=== PATIENT | male | born 1955 | race Caucasian/White ===

== ENCOUNTER 2016-09-10 10:09 | Emergency (ER) | payer OTHER ==
--- NOTE | 2016-09-10 10:21 | ER Document Report ---
ED Medical Screen (RME) - General Stated Complaint: LEG PAIN Notes: patient is a 61 year old male p/w that he has left leg pain after falling off a ladder from about 2 feet up. has pain just above the left knee. swelling and tenderess above the left knee. concern for tendon rupture PMH: HTN (noncompliant with medication) I have greeted and performed a rapid initial assessment of this patient. A comprehensive ED assessment and evaluation of the patient, analysis of test results and completion of the medical decision making process will be conducted by additional ED providers. TRAVEL OUTSIDE OF THE [place] IN LAST 30 DAYS: No - Related Data Allergies/Adverse Reactions: No Known Allergies Allergy (Verified 09/10/16 10:17) Past Medical History - Past Medical History Cardiac Medical History: Reports: Hx Hypertension Denies: Hx Coronary Artery Disease, Hx Heart Attack Pulmonary Medical History: Denies: Hx Asthma, Hx Bronchitis, Hx COPD, Hx Pneumonia Neurological Medical History: Denies: Hx Cerebrovascular Accident, Hx Seizures Musculoskeltal Medical History: Denies Hx Arthritis, Reports Hx Musculoskeletal Trauma Past Surgical History: Reports: Hx Abdominal Surgery - shrapnel removal - Immunizations Immunizations up to date: Yes Hx Diphtheria, Pertussis, Tetanus Vaccination: Yes
--- NOTE | 2016-09-10 10:49 | ER Document Report ---
ED Extremity Problem, Lower - General Mode of Arrival: Ambulatory Information source: Patient TRAVEL OUTSIDE OF THE [place] IN LAST 30 DAYS: No - HPI Patient complains to provider of: Injury Location: Knee - left Occurred: Just prior to arrival Where: Outdoors, Work Context: Other - see above Associated symptoms: Other - see above <MARCUS DUMONT - Last Filed: 09/10/16 11:11> <NASH JIMENEZ - Last Filed: 09/10/16 13:24> - General Chief Complaint: Leg Pain Stated Complaint: LEG PAIN Notes: 61 year old male with history of hypertension presents to the ED complaining of difficulty extending his left knee secondary to falling backwards off a ladder just prior to arrival. Patient reports that he was on the second rung of an 8 foot fiberglass ladder when the ladder buckled. Patient proceeded to fall backwards while the rung above fell onto his left leg right above the knee. Patient does not complain of any pain, and is actively trying to extend his left leg upon examination. (MARCUS DUMONT) - Related Data Allergies/Adverse Reactions: No Known Allergies Allergy (Verified 09/10/16 10:17) Past Medical History - General Information source: Patient - Social History Smoking Status: Never Smoker Chew tobacco use (# tins/day): No Frequency of alcohol use: None Drug Abuse: None Family History: Reviewed & Not Pertinent Patient has suicidal ideation: No Patient has homicidal ideation: No - Past Medical History Cardiac Medical History: Reports: Hx Hypertension Renal/ Medical History: Denies: Hx Peritoneal Dialysis Musculoskeltal Medical History: Reports Hx Musculoskeletal Trauma Past Surgical History: Reports: Hx Abdominal Surgery - shrapnel removal - Immunizations Immunizations up to date: Yes Hx Diphtheria, Pertussis, Tetanus Vaccination: Yes <MARCUS DUMONT - Last Filed: 09/10/16 11:11> Review of Systems - Review of Systems Constitutional: No symptoms reported EENT: No symptoms reported Cardiovascular: No symptoms reported Respiratory: No symptoms reported Gastrointestinal: No symptoms reported Genitourinary: No symptoms reported Male Genitourinary: No symptoms reported Musculoskeletal: See HPI, Other - inability to extend left knee Skin: No symptoms reported Hematologic/Lymphatic: No symptoms reported Neurological/Psychological: No symptoms reported -: Yes All other systems reviewed and negative <MARCUS UDMONT - Last Filed: 09/10/16 11:11> Physical Exam - General General appearance: Alert In distress: None - HEENT Head: Normocephalic, Atraumatic Eyes: Normal Extraocular movements intact: Yes Pupils: PERRL - Respiratory Respiratory status: No respiratory distress - Cardiovascular Rhythm: Regular - Abdominal Inspection: Normal - Back Back: Normal - Extremities General upper extremity: Normal inspection, Normal ROM General lower extremity: No: Normal inspection - see knee exam below Knee: Nontender, Other - Palpable defect where the left quadraceps tendons should be. Unable to extend left knee. Palpable left femoral condyles. - Neurological Neuro grossly intact: Yes - Psychological Associated symptoms: Normal affect, Normal mood - Skin Skin Temperature: Warm Skin Moisture: Dry Skin Color: Normal <MARCUS DUMONT - Last Filed: 09/10/16 11:11> <NASH JIMENEZ - Last Filed: 09/10/16 13:24> - Vital signs Vitals: Temp Pulse Resp BP Pulse Ox 97.3 F 86 20 150/101 H 97 09/10/16 10:15 09/10/16 10:15 09/10/16 10:15 09/10/16 10:15 09/10/16 10:15 Course <DUMONTMARCUS - Last Filed: 09/10/16 11:11> - Laboratory Result Diagrams: 09/10/16 12:21 09/10/16 12:21 - Diagnostic Test Radiology reviewed: Image reviewed, Reports reviewed - Possible avulsion from the patella, soft tissue defect in the suprapatellar region consistent with the physical exam showing a ruptured quadriceps tendon - EKG Interpretation by Me EKG shows normal: Sinus rhythm, Meridian, Intervals, QRS Complexes, ST-T Waves Rate: Normal - 90 Rhythm: NSR Meridian/QRS: Left axis deviation When compared to previous EKG there are: Previous EKG unavailable - Consults Dr. Hernandez Consulted provider: will come to ER <NASH JIMENEZ - Last Filed: 09/10/16 13:24> - Re-evaluation Re-evalutation: 09/10/16 13:18 The knee immobilizer was placed on the left lower extremity by the PCT. Plan transport, the patient is able to ambulate with a 4 footed cane and the knee immobilizer. He states that he does not have any pain so he does not need pain medication. (NASH JIMENEZ) - Vital Signs Vital signs: Temp Pulse Resp BP Pulse Ox 97.3 F 86 20 150/101 H 97 09/10/16 10:15 09/10/16 10:15 09/10/16 10:15 09/10/16 10:15 09/10/16 10:15 - Laboratory Laboratory results interpreted by me: 09/10/16 12:21 Glucose 135 H Discharge <MARCUS DUMONT - Last Filed: 09/10/16 11:11> <NASH JIMENEZ - Last Filed: 09/10/16 13:24> - Discharge Clinical Impression: Quadriceps tendon rupture Qualifiers: Encounter type: initial encounter Laterality: left Qualified Code(s): S76.112A - Strain of left quadriceps muscle, fascia and tendon, initial encounter Condition: Stable Disposition: HOME, SELF-CARE Additional Instructions: Wear the knee immobilizer. Elevate your leg. Limit walking. Do not eat after midnight. Follow-up with at the [facility] for [facility] tomorrow morning at 8:00 AM. Prescriptions: Oxycodone HCl/Acetaminophen [Percocet 5-325 mg Tablet] 1 - 2 tab PO ASDIR PRN # 15 tablet PRN Reason: Referrals: [facility] [Provider Group] - Follow up tomorrow Scribe Attestation: 09/10/16 13:24 I personally performed the services described in the documentation, reviewed and edited the documentation which was dictated to the scribe in my presence, and it accurately records my words and actions. (NASH JIMENEZ) Scribe Documentation - Scribe Written by Monroeibe:: Jens Melgar, 09/10/2016 1126 acting as scribe for :: Bang <MARCUS DUMONT - Last Filed: 09/10/16 11:11>
[2016-09-10 12:41] LABS: APPEARANCE,URINE CLEAR; BILIRUBIN,URINE NEGATIVE (NEGATIVE); GLUCOSE, URINE NEGATIVE (NEGATIVE); KETONES,URINE NEGATIVE (NEGATIVE); LEUKOCYTE ESTERASE,URINE NEGATIVE (NEGATIVE); NITRITE,URINE NEGATIVE (NEGATIVE); PROTEIN,URINE NEGATIVE (NEGATIVE); URINE SPECIFIC GRAVITY 1.012; UROBILINOGEN,URINE NEGATIVE mg/dL (<2.0)
[2016-09-10 12:51] LABS: ABSOLUTE BASOPHILS # (AUTO) 0.1 10^3/uL (0.0-0.2); ABSOLUTE EOSINOPHILS # (AUTO) 0.2 10^3/uL (0.0-0.6); ABSOLUTE LYMPHOCYTES (AUTO) 1.5 10^3/uL (0.5-4.7); ABSOLUTE MONOCYTES (AUTO) 0.6 10^3/uL (0.1-1.4); ABSOLUTE NEUT (AUTO) 5.8 10^3/uL (1.7-8.2); BASOPHILS % (AUTO) 0.9 % (0-2); EOSINOPHILS % (AUTO) 2.3 % (0-6); HEMATOCRIT 44.6 % (37.9-51.0); HEMOGLOBIN 15.3 g/dL (13.5-17.0); HGB HCT DIFFERENCE 1.3; LYMPHOCYTES % (AUTO) 18.1 % (13-45); MEAN CORPUSCULAR HEMOGLOBIN 31.2 pg (27.0-33.4); MEAN CORPUSCULAR HGB CONC 34.4 g/dL (32.0-36.0); MEAN CORPUSCULAR VOLUME 91 fl (80-97); MONOCYTES % (AUTO) 7.6 % (3-13); RED BLOOD COUNT 4.91 10^6/uL (4.35-5.55); RED CELL DISTRIBUTION WIDTH 13.3 % (11.5-14.0); SEGMENTED NEUTROPHILS % (AUTO) 71.1 % (42-78); WHITE BLOOD COUNT 8.2 10^3/uL (4.0-10.5)
[2016-09-10 13:12] LABS: ALANINE AMINOTRANSFERASE 60 U/L (21-72); ALBUMIN 4.5 g/dL (3.5-5.0); ALKALINE PHOSPHATASE 80 U/L (38-126); ANION GAP 12 (5-19); ASPARTATE AMINO TRANSFERASE 47 U/L (17-59); BILIRUBIN,TOTAL 0.9 mg/dL (0.2-1.3); BLOOD UREA NITROGEN 10 mg/dL (7-20); CALCIUM 9.7 mg/dL (8.4-10.2); CARBON DIOXIDE 25 mmol/L (22-30); CHLORIDE 103 mmol/L (98-107); CREATININE RESULT 0.82 mg/dL (0.52-1.25); GLUCOSE 135 mg/dL (75-110); POTASSIUM 4.4 mmol/L (3.6-5.0); SODIUM 139.6 mmol/L (137-145); TOTAL PROTEIN 7.5 g/dL (6.3-8.2)
[2016-09-10 13:33] VITALS: BP 158/91
--- NOTE | 2016-09-10 20:05 | EKG REPORT ---
SEVERITY:- OTHERWISE NORMAL ECG - SINUS RHYTHM BORDERLINE LEFT AXIS DEVIATION : Confirmed by: Terri Foley 10-Sep-2016 20:04:40
== END 2016-09-10 13:31 | disposition home or self-care (01) ==
LOC: ER 10:09
DX: S76.112A Strain of left quadriceps muscle, fascia and tendon, initial encounter (principal); M25.561 Pain in right knee; W11.XXXA Fall on and from ladder, initial encounter
CPT/HCPCS: 93005; 99284; 36415; 85025; 80053; 81001; 71020; 73562; 93010; L1830

== ENCOUNTER 2016-09-11 11:25 | Day surgery (SDC) | payer OTHER ==
[~2016-09-11 11:25] MED LIST: CEFAZOLIN 2 GM/D5W RTU 2 GM/50 ML RTUPB IV ONE; GLYCOPYRROLATE INJ 0.4 MG/2 ML VIAL ONE; LIDOCAINE 2% INJ-PF (20 MG/ML) 10 ML AMPUL ONE; METOCLOPRAMIDE HCL INJ/PF 10 MG/2 ML SDV ONE; NEOSTIGMINE METHYLSULFATE 10 MG/10 ML VIAL ONE; ONDANSETRON HCL INJ/PF 4 MG/2 ML SDV ONE; SUCCINYLCHOLINE CHLORIDE INJ 200 MG/10 ML VIAL ONE
[2016-09-11] MEDS ORDERED: FENTANYL CITRATE INJ/PF 250 MCG/5 ML AMPULE ONE (12:13)
[2016-09-11] MEDS ORDERED: PROPOFOL INJ 200 MG/20 ML VIAL IV ONE (12:14)
[2016-09-11] MEDS ORDERED: MIDAZOLAM 2 MG/2 ML INJ ONE (12:14)
[2016-09-11] MEDS ORDERED: MORPHINE SULFATE 10 MG/ML INJ ONE (12:14)
[2016-09-11] MEDS ORDERED: ACETAMINOPHEN 100 ML IV ONE (12:14)
[2016-09-11] MEDS ORDERED: PROMETHAZINE HCL INJ 25 MG/1 ML VIAL IV PRN ×2 (13:55)
[2016-09-11] MEDS ORDERED: DIPHENHYDRAMINE HCL 50 MG/ML VIAL IV PRN (13:55)
[2016-09-11] MEDS ORDERED: MEPERIDINE HCL/PF INJ 25 MG/1 ML DISP.SYRIN IV PRN (13:55)
[2016-09-11] MEDS ORDERED: OXYCODONE-ACETAMINOPHEN 5-325 MG TABLET PO PRN ×4 (13:55→14:49)
[2016-09-11] MEDS ORDERED: FENTANYL CITRATE INJ/PF 100 MCG/2 ML AMPUL IV PRN ×3 (13:55)
[2016-09-11] MEDS ORDERED: MORPHINE SULFATE 10 MG/ML INJ IV PRN (13:55)
--- NOTE | 2016-09-11 14:46 | Operative Report ---
Operative Report DATE OF SURGERY: 09/11/16 PREOPERATIVE DIAGNOSIS: Left quadriceps tendon rupture POSTOPERATIVE DIAGNOSIS: Same OPERATION: Left quadriceps tendon repair SURGEON: ANAMARIA GARZA ANESTHESIA: GA TISSUE REMOVED OR ALTERED: none COMPLICATIONS: None ESTIMATED BLOOD LOSS: 20 mL INTRAOPERATIVE FINDINGS: As above PROCEDURE: After receiving 2 g of Ancef in the preop holding area patient left knee was marked. Patient was brought to the operating room where the patient was successfully sedated and intubated. A thigh tourniquet was applied to the left thigh and a bump was placed under his buttocks. The left lower extremity was prepped and draped in a normal sterile surgical fashion. Timeout was done identifying the left knee as the correct site. Esmarch was used to exsanguinate the extremity and the tourniquet was inflated to 300 mmHg. A longitudinal incision over the knee was done using a 10 blade. Deep knife was using to quickly exposed the torn quadriceps tendon. Dissection was taken down distally exposing the patellar tendon. Suction was used to remove all of the fluid and hematoma. The edges of the quadriceps tendon and superior pole of patella were debrided and cleaned with Quincy, and knife. I used 2 #2 fiber tape to do my Krakw stitch in the quadriceps tendon. After the 4 strands of the fiber tape were coming out of the quadriceps I clamped these and then proceeded to do my 3 drill holes in the patella. I use a 2.0 drill bit and made separate stab incisions parallel with the patellar tendon fibers to expose him distally. I used a De La Rosa suture passer and passed it from the superior pole and came out of the stab incisions distally to capture Vicryl which I pulled through them. The Vicryl was used as a suture passer and I was used the fiber wires and freedom through them through the superior pole and have him come out the inferior pole. After 4 strands were passed, one most lateral one most medial and the 2 inner tails were passed through the middle drill hole. The knee was placed in full extension and I was able to pull on the fiber strands to make sure that the quadriceps tendon would abut the superior pole of the patella. I was able then to go and tying knots securing the quadriceps tendon to the superior pole. After securing the tendon I proceeded then to use 0 Vicryl to repair the medial and lateral retinaculum. I used 0 Vicryl to repair the stab incisions in the patellar tendon. I placed the knee from 0 to 90 making sure that my repair held and it did. At this point I proceeded to close the wound with 0 Vicryl to Vicryl and kody for skin. Xeroform 4 x 4 dressing and Sof-Rol was applied to the wound and lower extremity. I overwrapped it with an Declan bandage. Tourniquet was let down and then the drapes were removed. Patient was placed in a hinged knee brace locked at 0. Patient was successfully extubated and sent to PACU in stable condition.
--- NOTE | 2016-09-11 14:49 | PDOC DISCHARGE SUMMARY ---
Discharge Summary (SDC) - Discharge Final Diagnosis: Left quadriceps tendon repair Date of Surgery: 09/11/16 Discharge Date: 09/11/16 Condition: Good Treatment or Instructions: Patient and bili with crutches with the brace locked at 0. Ambulate as tolerated without range of motion. Okay to weight-bear as tolerated. Dressing change in 5 days. After that he can shower as tolerated. No soaking or bathing. Follow up in 10-14 days. Prescriptions: Oxycodone HCl/Acetaminophen [Percocet 5-325 mg Tablet] 1 - 2 tab PO ASDIR PRN # 40 tablet PRN Reason: Discharge Activity: Keep Legs Elevated, No Lifting/Push/Pulling Adaptive Devices on Discharge: Axillary Crutches Report the Following to Your Physician Immediately: Shortness of Breath, Vomiting, Increase in Pain, Fever over 101 Degrees, Unusual Bleeding, Redness, Swelling, Warmth, Drainage-Yellow, Drainage-Green, Drainage-Foul Smelling
[2016-09-11 18:25] VITALS: BP 169/102
== END 2016-09-11 17:30 | disposition home or self-care (01) ==
LOC: OROUT 11:25
PROVIDERS: ATTEND Orthopaedic Surgery
PROC: 0LQM0ZZ Repair Left Upper Leg Tendon, Open Approach (ICD-10-PCS; principal; 2016-09-11 13:00)
DX: S76.192A Other specified injury of left quadriceps muscle, fascia and tendon, initial encounter (principal); W11.XXXA Fall on and from ladder, initial encounter; Y93.9 Activity, unspecified; Z79.899 Other long term (current) drug therapy; Z79.82 Long term (current) use of aspirin
CPT/HCPCS: 27385; J2250; J3010; J2765; J2270; J0330; J2405; J2704; J3490; J0690; J0131; 1320

== ENCOUNTER → 2018-12-23 | Outpatient (CLI) | payer OTHER ==
--- NOTE | 2018-12-23 15:35 | RADIOLOGY REPORT (SQ) ---
EXAM DESCRIPTION: NM HIDA SCAN WITH CCK COMPLETED DATE/TIME: 12/23/2018 2:44 pm REASON FOR STUDY: R10.11 RIGHT UPPER QUADRANT PAIN R10.11 RIGHT UPPER QUADRANT PAIN COMPARISON: None. RADIONUCLIDE AND DOSE: DOSAGE RADIONUCLIDE: 5 millicuries Tc99m Mebrofenin. DOSAGE CCK: 1.6 micrograms. DOSAGE MORPHINE: Not required. The route of agent administration: Intravenous TECHNIQUE: Serial imaging right upper quadrant up to 60 minutes following injection of radionuclide. CCK injected after gallbladder visualized. LIMITATIONS: None. FINDINGS: LIVER: Normal visualization without areas of photopenia. INTRAHEPATIC BILE DUCTS: Normal size and no delay in visualization. COMMON BILE DUCT: Normal without dilatation. GALLBLADDER: Normal visualization. Calculated ejection fraction of 67%. Normal range is greater th an 35%. PHYSICAL RESPONSE: Patients presenting complaint was reproduced. OTHER: No other significant finding. IMPRESSION: Normal gallbladder ejection fraction of 67%. Patient's symptoms were reproduced with CC K administration. TECHNICAL DOCUMENTATION: JOB ID: [id number] [employer]- All Rights Reserved Reading location - IP/workstation name: [email or web address]
== END ==
LOC: RAD 12:43
PROVIDERS: ATTEND Family Medicine
DX: R10.11 Right upper quadrant pain (principal)
CPT/HCPCS: 78227; J2805; A9537; Q9969

== ENCOUNTER → 2020-04-05 | Outpatient (CLI) | payer MEDICARE, OTHER ==
[2020-04-05 12:15] LABS: ABSOLUTE BASOPHILS # (AUTO) 0.1 10^3/uL (0.0-0.2); ABSOLUTE EOSINOPHILS # (AUTO) 0.4 10^3/uL (0.0-0.6); ABSOLUTE LYMPHOCYTES (AUTO) 1.8 10^3/uL (0.5-4.7); ABSOLUTE MONOCYTES (AUTO) 0.6 10^3/uL (0.1-1.4); ABSOLUTE NEUT (AUTO) 4.9 10^3/uL (1.7-8.2); BASOPHILS % (AUTO) 1.1 % (0-2); EOSINOPHILS % (AUTO) 5.6 % (0-6); HEMATOCRIT 44.9 % (37.9-51.0); HEMOGLOBIN 15.9 g/dL (13.5-17.0); LYMPHOCYTES % (AUTO) 23.3 % (13-45); MEAN CORPUSCULAR HEMOGLOBIN 32.9 pg (27.0-33.4); MEAN CORPUSCULAR HGB CONC 35.3 g/dL (32.0-36.0); MEAN CORPUSCULAR VOLUME 93 fl (80-97); MONOCYTES % (AUTO) 7.3 % (3-13); PLATELET COUNT 260 10^3/uL (150-450); RED BLOOD COUNT 4.83 10^6/uL (4.35-5.55); RED CELL DISTRIBUTION WIDTH 13.5 % (11.5-14.0); SEGMENTED NEUTROPHILS % (AUTO) 62.7 % (42-78); TOTAL CELLS COUNTED % (AUTO) 100 %; WHITE BLOOD COUNT 7.9 10^3/uL (4.0-10.5)
--- NOTE | 2020-04-05 12:29 | RADIOLOGY REPORT (SQ) ---
EXAM DESCRIPTION: CHEST PA/LATERAL IMAGES COMPLETED DATE/TIME: 04/05/2020 12:08 pm REASON FOR STUDY: PRE-OP COMPARISON: 09/10/2016 EXAM PARAMETERS: NUMBER OF VIEWS: two views TECHNIQUE: Digital Frontal and Lateral radiographic views of the chest acquired. RADIATION DOSE: NA LIMITATIONS: none FINDINGS: LUNGS AND PLEURA: No opacities, masses or pneumothorax. No pleural effusion. MEDIASTINUM AND HILAR STRUCTURES: No masses or contour abnormalities. HEART AND VASCULAR STRUCTURES: Heart normal size. No evidence for failure. BONES: No acute findings. HARDWARE: Cervical fusion hardware. OTHER: No other significant finding. IMPRESSION: NO SIGNIFICANT RADIOGRAPHIC FINDING IN THE CHEST. TECHNICAL DOCUMENTATION: JOB ID: [id number] 2010 [employer]- All Rights Reserved Reading location - IP/workstation name: [email or web address]
[2020-04-05 12:50] LABS: ANION GAP 10 (5-19); BLOOD UREA NITROGEN 9 mg/dL (7-20); CALCIUM 9.6 mg/dL (8.4-10.2); CARBON DIOXIDE 25 mmol/L (22-30); CHLORIDE 103 mmol/L (98-107); GLUCOSE 92 mg/dL (75-110); POTASSIUM 4.4 mmol/L (3.6-5.0)
--- NOTE | 2020-04-05 13:05 | EKG REPORT ---
SEVERITY:- ABNORMAL ECG - SINUS RHYTHM MULTIPLE ATRIAL PREMATURE COMPLEXES LEFT AXIS DEVIATION ABNORMAL T, CONSIDER ISCHEMIA, INFERIOR LEADS CONSIDER OLD ANTERIOR ME : Confirmed by: Tino Gilliland MD 05-Apr-2020 13:03:59
== END ==
LOC: OD 11:09
PROVIDERS: ATTEND Orthopaedic Surgery
DX: Z01.810 Encounter for preprocedural cardiovascular examination (principal); Z01.811 Encounter for preprocedural respiratory examination; Z01.812 Encounter for preprocedural laboratory examination; G56.01 Carpal tunnel syndrome, right upper limb; E11.9 Type 2 diabetes mellitus without complications; I10 Essential (primary) hypertension; Z68.36 Body mass index [BMI] 36.0-36.9, adult
CPT/HCPCS: 36415; 71046; 80048; 83036; 85025; 93005; 93010